=== PATIENT | male | born 1980 | race Caucasian/White ===

== ENCOUNTER → 2016-08-10 | Outpatient (CLI) | payer MEDICAID ==
[~2016-08-10] MED LIST: IBUPROFEN200 M1 PO
--- NOTE | ~2016-08-10 | US6 ---
[facility] A Service of [facility] RADIOLOGY TEXT RESULTS PATIENT: CHAPIS JOHN [facility] [birth year] UNIT #: [id number] AGE: [address]: Lobito Morales MD SEX: M ORDER DR: [id number] [address] [address] [id number] MR#: [id number] Acc #: [id number] NAME: CHAPIS JOHN : 1980 SEX: M STUDY DATE/TIME: 08/10/2016 8:31 UNIT: SGUS ROOM: STUDY DESCRIPTION: US Abdominal Limited Attending Physician: Lobito Morales M.D. Referring Physician: Lobito Morales M.D. Ordering Physician: Lobito Morales M.D. Primary Care Physician: Lobito Morales M.D. MEDICAL IMAGING REPORT This report is preliminary unless electronic signature is present. EXAM Right upper quadrant abdominal ultrasound INDICATION Elevated liver enzyme levels 1 week ago. PROCEDURE Currie-scale and Doppler imaging right upper quadrant of the abdomen. COMPARISON None FINDINGS Visualized portions of pancreas are unremarkable. The liver has increased echotexture. Liver measures 16.6 cm. No liver mass on submitted images. Unremarkable gallbladder. Right kidney measures 12.3 cm. No hydronephrosis. There is a 13.0 mm cyst in the right kidney. IMPRESSION Increased liver echotexture most in keeping with steatosis. Otherwise negative right upper quadrant ultrasound. Dictated by... Ronni Novoa M.D. THIS IS AN ELECTRONICALLY VERIFIED REPORT Ronni Novoa M.D. at 08/11/2016 7:08 AM Evelyn TD: 08/10/2016 14:08 JOB #: [id number] [facility] A Service of [facility] RADIOLOGY TEXT RESULTS PATIENT: CHAPIS JOHN [facility] [birth year] UNIT #: [id number] AGE: [address]: Lobito Morales MD SEX: M ORDER DR: MEDICAL IMAGING REPORT
== END | disposition home or self-care (01) ==
LOC: SGUS 07:54
DX: R79.89 Other specified abnormal findings of blood chemistry (principal)
CPT/HCPCS: 76705

== ENCOUNTER → 2016-09-07 | Outpatient (CLI) | payer MEDICAID ==
[2016-09-07 09:01] LABS: HEMATOCRIT 41.9 % (38.0-50.0); MEAN CELL VOLUME 92.8 FL (83-96); MEAN CORPUSCULAR HEMOGLOBIN 30.9 PG (28-34); MEAN CORPUSCULAR HGB CONC 33.3 g/dL (30-36); MEAN PLATELET VOLUME 8.3 FL (6.5-11.5); RED BLOOD COUNT 4.52 X10e (3.90-5.60); RED CELL DISTRIBUTION WIDTH 13.4 % (11.0-15.5); WHITE BLOOD COUNT 6.9 X10e3 (4.0-10.5)
[2016-09-07 09:39] LABS: BUN/CREATININE RATIO 14.44; CALCIUM SERUM 9.1 mg/dL (8.4-10.2); CREATININE SERUM 0.9 mg/dL (0.6-1.4); POTASSIUM 4.1 mmol/L (3.5-5.1)
== END | disposition home or self-care (01) ==
LOC: CAMB 08:10
PROVIDERS: Specialist
DX: Z01.812 Encounter for preprocedural laboratory examination (principal); K40.20 Bilateral inguinal hernia, without obstruction or gangrene, not specified as recurrent
CPT/HCPCS: 36415; 80048; 85027

== ENCOUNTER → 2016-09-16 | Day surgery (SDC) | payer MEDICAID ==
--- NOTE | ~2016-09-16 | OR ---
Unit #: [id number] #: [id number] Patient: CHAPIS JOHN [id number] [facility] [address] [place], [place] [address] [id number] O MR#: [id number] NAME: CHAPIS JOHN ROOM: Date of Procedure: 09/16/2016 Admission Date: 09/16/2016 Surgeon: Bill Gale M.D. : 1980 Attending Physician: Bill Gale M.D. Primary Care Physician: Lobito Morales M.D. OPERATIVE REPORT PREOPERATIVE DIAGNOSIS Bilateral inguinal hernias. POSTOPERATIVE DIAGNOSIS Bilateral direct inguinal hernias. PROCEDURE PERFORMED Open repair with a medium PerFix plug mesh. TECHNICAL INSPECTOR Ivan Peraza M.D. ANESTHESIA General endotracheal anesthesia. ESTIMATED BLOOD LOSS Less than 20 mL. INDICATIONS FOR PROCEDURE Mr. John is a 35-year-old gentleman, who is a ux design lead and presented to the office with bilateral inguinal bulges. On examination, he had bilateral inguinal hernias. Testis and cord were normal. DESCRIPTION OF PROCEDURE The patient was admitted to [facility], positively identified, and transported to the operating room, and after induction of general endotracheal anesthesia, he received IV antibiotics per SCIP protocol. His abdominal wall hair was clipped, and he was prepped and draped in usual sterile fashion. Over the right inguinal canal, a transverse incision made in the skin line, dissected down through the soft tissue exposing the external oblique aponeurosis. The aponeurosis was opened in direction of its fibers to include the external ring. Cord structures were elevated from the floor of the inguinal canal. The spermatic cord was normal with no indirect sac. However, there was a large direct sac with a well-defined fascial defect in the floor of the inguinal canal. After it was completely mobilized and soft tissue attachments taken down to the level of the fascial defect, the incarcerated direct hernia could be reduced back in the peritoneal cavity through the defect. It was held in reduction and the defect was closed using a PerFix plug mesh. The mesh was secured with 0 Ethibond interrupted sutures. The floor of the inguinal canal was reinforced with a Bassini-type repair between the shelving edge of inguinal ligament and Unit #: [id number] #: [id number] Patient: CHAPIS JOHN conjoined tendon. Once that had been completed, a relaxing incision at the edge of the rectus sheath was performed. Onlay mesh was secured to the pubic tubercle stretched across the inguinal canal with the tails wrapped around the cord as it exited the abdominal wall. The mesh was secured with multiple 0 Ethibond interrupted sutures to the shelving edge of inguinal ligament laterally, the rectus sheath medially, and the musculofascial tissues superior and lateral to the internal ring. The ilioinguinal and iliohypogastric nerves were identified and preserved. 15 mL of 0.5% Marcaine was infiltrated to create a field block and then soft tissue was closed over the cord structures using 3-0 Vicryl suture and the skin was closed with 4-0 Monocryl running subcuticular closure. Dermabond skin adhesive was used as an occlusive dressing. On the left side, a mirror image incision was made. We dissected down through the soft tissue exposing the external oblique aponeurosis. Again, the aponeurosis was opened. The cord structure was mobilized and a larger direct hernia sac was identified to reduce this when I had opened the transversalis fascia slightly and then the hernia sac could be reduced. Again, a PerFix plug was placed to maintain reduction and to close the defect. A Bassini-type repair was again performed. The plug mesh was also secured with 0 Ethibond suture to prevent migration. Once the floor was closed, a relaxing incision was made medially. Onlay mesh was placed in the same fashion as the other side and then the cord structures placed back in the anatomic position. 15 mL of Marcaine was infiltrated for a field block. Soft tissue was closed with 3-0 Vicryl and the skin was closed with 4-0 Monocryl running subcuticular closure and Dermabond skin adhesive. Sponges and needle counts were correct x3. The patient tolerated the procedure well and transported to recovery in stable condition. Findings and postoperative instructions were discussed with his . Dictated by... Frances Bowling/mac TD: 09/16/2016 22:30 JOB #: [id number] OPERATIVE REPORT Page 1 of 1 X Bill Gale MD PROCEDURE OPERATIVE NOTE
== END | disposition home or self-care (01) ==
LOC: CSUR 05:34
DX: K40.20 Bilateral inguinal hernia, without obstruction or gangrene, not specified as recurrent (principal); G47.30 Sleep apnea, unspecified; Z87.442 Personal history of urinary calculi; Z79.1 Long term (current) use of non-steroidal anti-inflammatories (NSAID); Z98.52 Vasectomy status
CPT/HCPCS: C1781; J0131; J0690; J1100; J2250; J2405; J2710; J3010; J3370